=== PATIENT | female | born 1995 | race African-American/Black ===

== ENCOUNTER 2016-04-10 12:34 | Emergency (ER) | payer MEDICAID ==
[~2016-04-10] VITALS: Ht 157.5 cm; Wt 100.0 kg
[~2016-04-10 12:34] MED LIST: IBUP800T23 PO
[2016-04-10 12:35] VITALS: BP 133/89; PULSE 128; RESP 16; TEMP 98.7; O2SAT 95
[2016-04-10] MEDS ORDERED: SODIUM CHLOR 0.9% 1000 ML INJ 1,000 ML IV ONE ×2 (14:15)
[2016-04-10] MEDS ORDERED: SODIUM CHLORIDE 0.9% FLUSH 5 ML FLUSH IVF PRN (14:15)
--- NOTE | 2016-04-10 14:21 | PD ---
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 Patient states she did get a flu shot this year. Patient states it all started when she was cleaning a patient's room. Patient states was non- isolation room and does not believe the patient who occupy the room had anything contagious. She states that she has been having some "cold" production when she coughs which has been coming blood streaked. States she's also been feeling very chilled but has not taken her temperature at home. [facility], [facility] Past Medical History Medical History: Denies Significant Hx Hx Anticoagulant Therapy: No Cardiovascular Problems: No Chemotherapy: No Cerebrovascular Accident: No Diabetes: No Respiratory: No Tetanus Vaccination: < 5 Years ?: Not Past Surgical History Section: Yes Social History Alcohol Use: No Tobacco Use: No Substance Use: No Allergies-Medications (Allergen,Severity, Reaction): Coded Allergies: No Known Allergies (Unverified , 04/10/16) Reported Meds & Prescriptions Reported Meds & Active Scripts Active Ibuprofen 800 Mg Tab 800 Mg PO TID PRN Review of Systems Except as stated in HPI: all other systems reviewed are Neg Physical Exam Narrative GENERAL: WD/WN, overweight in NAD. SKIN: Warm and dry. HEAD: Atraumatic. Normocephalic. EYES: Pupils equal and round. No scleral icterus. No injection or drainage. ENT: No nasal bleeding or discharge. Mucous membranes pink and moist. TM's clear bilaterally. NECK: Trachea midline. No JVD. CARDIOVASCULAR: Tachycardic with regular rhythm. No MGR. 2+ Bilaterally equal pulses in all 5 exts. RESPIRATORY: No accessory muscle use. Clear to auscultation. Breath sounds equal bilaterally. GASTROINTESTINAL: Abdomen soft, non-tender, nondistended. Hepatic and splenic margins not palpable. MUSCULOSKELETAL: Extremities without clubbing, cyanosis, or edema. No obvious deformities. NEUROLOGICAL: Awake and alert. No obvious cranial nerve deficits. Motor grossly within normal limits. Five out of 5 muscle strength in the arms and legs. Normal speech. PSYCHIATRIC: Appropriate mood and affect; insight and judgment normal. Data Data Last Documented VS Vital Signs Date Time Temp Pulse Resp B/P Pulse Ox O2 Delivery O2 Flow Rate FiO2 04/10/16 14:22 98 Room Air 04/10/16 14:22 123 18 129/76 102/50 04/10/16 12:35 98.7 Orders Electrocardiogram (04/10/16 ) Complete Blood Count With Diff (04/10/16 14:10) Comprehensive Metabolic Panel (04/10/16 14:10) D-Dimer (04/10/16 14:10) Magnesium (Mg) (04/10/16 14:10) Prothrombin Time / Inr (Pt) (04/10/16 14:10) Act Partial Throm Time (Ptt) (04/10/16 14:10) Troponin I (04/10/16 14:10) Ecg Monitoring (04/10/16 14:10) Bilateral Bp Monitoring (04/10/16 14:10) Iv Access Insert/Monitor (04/10/16 14:10) Oximetry (04/10/16 14:10) Oxygen Administration (04/10/16 14:10) Sodium Chloride 0.9% Flush (Ns Flush) (04/10/16 14:15) Chest, Pa & Lat (04/10/16 14:10) Sodium Chlor 0.9% 1000 Ml Inj (Ns 1000 M (04/10/16 14:15) Sodium Chlor 0.9% 1000 Ml Inj (Ns 1000 M (04/10/16 14:15) Labs Laboratory Tests Test 04/10/16 14:45 White Blood Count 7.7 TH/MM3 Red Blood Count 4.98 MIL/MM3 Hemoglobin 14.0 GM/DL Hematocrit 40.6 % Mean Corpuscular Volume 81.6 FL Mean Corpuscular Hemoglobin 28.2 PG Mean Corpuscular Hemoglobin 34.5 % Concent Red Cell Distribution Width 13.8 % Platelet Count 292 TH/MM3 Mean Platelet Volume 7.8 FL Neutrophils (%) (Auto) 68.6 % Lymphocytes (%) (Auto) 15.8 % Monocytes (%) (Auto) 14.7 % Eosinophils (%) (Auto) 0.6 % Basophils (%) (Auto) 0.3 % Neutrophils # (Auto) 5.3 TH/MM3 Lymphocytes # (Auto) 1.2 TH/MM3 Monocytes # (Auto) 1.1 TH/MM3 Eosinophils # (Auto) 0.0 TH/MM3 Basophils # (Auto) 0.0 TH/MM3 CBC Comment DIFF FINAL Differential Comment Prothrombin Time 10.6 SEC Prothromb Time International 1.0 RATIO Ratio Activated Partial 31.2 SEC Thromboplast Time D-Dimer Quantitative (PE/DVT) 0.45 MG/L FEU Sodium Level 134 MEQ/L Potassium Level 4.4 MEQ/L Chloride Level 101 MEQ/L Carbon Dioxide Level 26.4 MEQ/L Anion Gap 7 MEQ/L Blood Urea Nitrogen 7 MG/DL Creatinine 0.82 MG/DL Estimat Glomerular Filtration 108 ML/MIN Rate Random Glucose 222 MG/DL Calcium Level 9.1 MG/DL Magnesium Level 1.9 MG/DL Total Bilirubin 0.2 MG/DL Aspartate Amino Transf 18 U/L (AST/SGOT) Alanine Aminotransferase 20 U/L (ALT/SGPT) Alkaline Phosphatase 79 U/L Troponin I LESS THAN 0.02 NG/ML Total Protein 8.9 GM/DL Albumin 3.9 GM/DL [facility] Medical Decision Making Medical Screen Exam Complete: Yes Emergency Medical Condition: Yes Interpretation(s) EKG shows sinus tachycardia with normal axis normal R-wave progression. Does have nonspecific right heart strain pattern. No concerning ST-T wave changes. This is a borderline EKG. No previous EKG for comparison. Differential Diagnosis URI, PNA, Dehydration, PE. Narrative Course D-Dimer below institutional cutoff. She appears well. Saturating well. Dought PE clinically. Symptoms more suggestive of influenza-like disease. CXR negative. HR improving with fluids, low 100's at time of discharge. DIscussed need for follow up with PCP and return to ED criteria. Diagnosis Primary Impression: Flu-like symptoms Departure Forms: Tests/Procedures, Work Release Enter return to work date: Apr 12, 2016 Med/Other Pt SpecificInfo: Prescription(s) given Disposition: 01 DISCHARGE HOME Condition: Stable Harjeet Fowler MD Apr 10, 2016 14:21
[2016-04-10 14:22] VITALS: BP_SYST 102; BP_SYST 129; BP_DIAS 50; BP_DIAS 76; PULSE 123; RESP 18; O2SAT 98
--- NOTE | 2016-04-10 14:42 | EKG ---
Date Performed: 04/10/2016 Time Performed: 13:16:58 PTAGE: 20 years EKG: SINUS TACHYCARDIA NONSPECIFIC T-WAVE ABNORMALITY ABNORMAL ECG NO PREVIOUS TRACING DOCTOR: William Mancuso Interpretating Date/Time 04/10/2016 14:41:54
--- NOTE | 2016-04-10 14:56 | RADRPT ---
EXAM DATE/TIME: 04/10/2016 14:39 [place] COMPARISON: No previous studies available for comparison. INDICATIONS : Hemoptysis and dizziness with fever. MEDICAL HISTORY : None. SURGICAL HISTORY : None. ENCOUNTER: Initial ACUITY: 1 week PAIN SCORE: 2/10 LOCATION: Mid chest. FINDINGS: PA and lateral views of the chest demonstrate a normal-sized cardiac silhouette. There is no effusion , consolidation, or pneumothorax. The bones and soft tissues demonstrate no acute abnormality. CONCLUSION: No acute cardiopulmonary abnormality is identified. Mark Anthony Robbins MD on April 10, 2016 at 14:54 Board Certified Radiologist. This report was verified electronically.
[2016-04-10 14:57] LABS: AUTOMATED NEUTROPHIL # 5.3 TH/MM3 (1.8-7.7); BASOPHIL % 0.3 % (0.0-2.0); EOSINOPHIL % 0.6 % (0.0-4.0); HEMATOCRIT 40.6 % (35.0-46.0); HEMO FLAGS DIFF FINAL; LYMPH % 15.8 % (9.0-44.0); LYMPHOCYTE # 1.2 TH/MM3 (1.0-4.8); MEAN CELL VOLUME 81.6 FL (80.0-100.0); MEAN CORPUSCULAR HEMOGLOBIN 28.2 PG (27.0-34.0); MEAN CORPUSCULAR HGB CONC 34.5 % (32.0-36.0); MONO % 14.7 % (0.0-8.0); NEUT % 68.6 % (16.0-70.0); PLATELET COUNT 292 TH/MM3 (150-450); RED BLOOD COUNT 4.98 MIL/MM3 (4.00-5.30); RED CELL DISTRIBUTION WIDTH 13.8 % (11.6-17.2); WHITE BLOOD COUNT 7.7 TH/MM3 (4.0-11.0)
[2016-04-10 15:13] LABS: APTT (PATIENT) 31.2 SEC (24.3-30.1); PROTHROMBIN TIME - PATIENT 10.6 SEC (9.8-11.6)
[2016-04-10 15:31] LABS: ALT (GPT) 20 U/L (9-42); ANION GAP 7 MEQ/L (5-15); AST (GOT) 18 U/L (16-38); BICARBONATE 26.4 MEQ/L (21.0-32.0); BLOOD UREA NITROGEN 7 MG/DL (7-18); CHLORIDE 101 MEQ/L (98-107); GLOMERULAR FILTRATION RATE 108 ML/MIN (>89); MAGNESIUM 1.9 MG/DL (1.5-2.5); SODIUM (NA) 134 MEQ/L (136-145)
[2016-04-10 15:32] LABS: ALKALINE PHOSPHATASE 79 U/L (45-117); TOTAL BILIRUBIN ADULT 0.2 MG/DL (0.2-1.0)
[2016-04-10 15:40] LABS: POTASSIUM 4.4 MEQ/L (3.5-5.1)
== END 2016-04-10 17:05 | disposition home or self-care (01) ==
LOC: NEPA 12:34
DX: R04.2 Hemoptysis (principal); R09.89 Other specified symptoms and signs involving the circulatory and respiratory systems; R52 Pain, unspecified; R00.0 Tachycardia, unspecified
CPT/HCPCS: 71020; 80053; 83735; 84484; 85025; 85379; 85610; 85730; 93005; 96360; 96361; 99284; J7030

== ENCOUNTER 2017-05-15 10:22 | Emergency (ER) | payer SELFPAY ==
[~2017-05-15 10:22] MED LIST changes: +IBUP1TAB7 PO; -IBUP800T23 PO
[2017-05-15 11:19] VITALS: BP 148/99; PULSE 93; RESP 14; TEMP 98.9
[2017-05-15] MEDS ORDERED: KETOROLAC TROMETHAMINE 60 MG/2 ML (IM) VIAL IM ONE (11:45)
--- NOTE | 2017-05-15 11:46 | PD ---
HPI Chief Complaint: Headache Time Seen by Provider: 11:41 Travel History International Travel<30 days: No Contact w/Intl Traveler<30days: No Traveled to known affect area: No History of Present Illness HPI 21-year-old female presents for evaluation of headache and back pain. Symptoms started yesterday evening. Pain is a sharp pain in the left side of her head and mid back which is constant,. She reports that she use [id number] Tylenol yesterday evening but the headache persists which prompted evaluation. She reports that she gets similar but less severe headaches on a monthly basis. She is currently on her menstrual period. She denies blurred vision, nausea or vomiting, photophobia, phonophobia, cough, congestion, sore throat, chest pain, abdominal pain, dysuria, flank pain. She has no other complaints at this time. [facility] Past Medical History Hx Anticoagulant Therapy: No Cardiovascular Problems: No Chemotherapy: No Cerebrovascular Accident: No Diabetes: No Diminished Hearing: No Respiratory: No ?: Not LMP: CURRENT Past Surgical History Section: Yes Social History Alcohol Use: No Tobacco Use: No Substance Use: No Allergies-Medications (Allergen,Severity, Reaction): Coded Allergies: No Known Allergies (Unverified , 04/10/16) Reported Meds & Prescriptions Reported Meds & Active Scripts Active No Active Prescriptions or Reported Medications Review of Systems Except as stated in HPI: all other systems reviewed are Neg Physical Exam Narrative GENERAL: Well-developed well-nourished female in no acute distress SKIN: Warm and dry. HEAD: Atraumatic. Normocephalic. EYES: Pupils equal and round. No scleral icterus. No injection or drainage. ENT: No nasal bleeding or discharge. Mucous membranes pink and moist. NECK: Trachea midline. No JVD. CARDIOVASCULAR: Regular rate and rhythm. No murmur appreciated. RESPIRATORY: No accessory muscle use. Clear to auscultation. Breath sounds equal bilaterally. GASTROINTESTINAL: Abdomen soft, non-tender, nondistended. Hepatic and splenic margins not palpable. MUSCULOSKELETAL: No obvious deformities. No clubbing. No cyanosis. No edema. NEUROLOGICAL: Awake and alert. No obvious cranial nerve deficits. Motor grossly within normal limits. Normal speech. PSYCHIATRIC: Appropriate mood and affect; insight and judgment normal. Data Data Last Documented VS Vital Signs Date Time Temp Pulse Resp B/P (MAP) Pulse Ox O2 Delivery O2 Flow Rate FiO2 05/15/17 11:19 98.9 93 14 148/99 (115) Orders Orders Ed Discharge Order (05/15/17 11:42) Ketorolac Inj (Toradol Inj) (05/15/17 11:45) MDM Medical Decision Making Medical Screen Exam Complete: Yes Emergency Medical Condition: Yes Medical Record Reviewed: Yes Differential Diagnosis Migraine, tension headache, pseudotumor cerebri, subarachnoid hemorrhage, intracranial mass, cluster headache Narrative Course Physical examination is reassuring. She has no neurologic deficits. She is resting comfortably on her hospital bed. I suspect she has a benign headache, possibly migraine. She will be given a dose of Toradol. Recommended follow-up with primary care physician. She is stable for discharge. Diagnosis Primary Impression: Cephalgia Departure Forms: Tests/Procedures, Work Release Enter return to work date: May 16, 2017 Additional Instructions: Follow-up with primary care physician for further evaluation of these recurrent headaches. Return for any emergent medical conditions. Med/Other Pt SpecificInfo: No Change to Meds Scripts No Active Prescriptions or Reported Meds Disposition: 01 DISCHARGE HOME Condition: Stable Jah Bear May 15, 2017 11:46
== END 2017-05-15 12:22 | disposition home or self-care (01) ==
LOC: NEPK 10:22
DX: R51 Headache (principal)
CPT/HCPCS: 96372; 99283; J1885

== ENCOUNTER 2017-05-31 09:26 | Emergency (ER) | payer SELFPAY ==
[~2017-05-31] VITALS: Ht 152.4 cm; Wt 87.0 kg
[2017-05-31 09:32] VITALS: BP 128/83; PULSE 112; RESP 18; TEMP 99.7; O2SAT 100
--- NOTE | 2017-05-31 10:22 | PD ---
HPI Chief Complaint: ENT Complaint Time Seen by Provider: 09:41 Travel History International Travel<30 days: No Contact w/Intl Traveler<30days: No Traveled to known affect area: No History of Present Illness HPI 21-year-old female presents to the emergency room for evaluation of sore throat for the past 3 days. Patient states "my tonsils came up." Patient states symptoms worsened this morning when she woke up. Pain is constant but worse with swallowing. She has had no objective fevers. She has not taken anything for symptoms. Denies cough, congestion, or runny nose. No chronic medical conditions or daily medications. PFSH Past Medical History Hx Anticoagulant Therapy: No Cardiovascular Problems: No Chemotherapy: No Cerebrovascular Accident: No Diabetes: No Diminished Hearing: No Respiratory: No Tetanus Vaccination: Unknown ?: Not Past Surgical History Section: Yes Social History Alcohol Use: No Tobacco Use: No Substance Use: No Allergies-Medications (Allergen,Severity, Reaction): Coded Allergies: No Known Allergies (Unverified Adverse Reaction, Unknown, 05/31/17) Reported Meds & Prescriptions Reported Meds & Active Scripts Active Amoxicillin 500 Mg Cap 500 Mg PO BID 10 Days Review of Systems Except as stated in HPI: all other systems reviewed are Neg Physical Exam Narrative GENERAL: Well-nourished, well-developed female no acute distress. Afebrile. Ambulatory. SKIN: Focused skin assessment warm/dry. HEAD: Normocephalic. EYES: No scleral icterus. No injection or drainage. ENT: Mucosa pink and moist. Significant beefy red erythema bilaterally without exudates. Tonsils 2+ and equal. No uvular edema. No uvular, palatal, or tonsillar deviation. Airway patent. NECK: Supple, trachea midline. No JVD or lymphadenopathy. CARDIOVASCULAR: Slightly tachycardic. Regular rhythm without murmurs, gallops, or rubs. RESPIRATORY: Breath sounds equal bilaterally. No accessory muscle use. No crackles, rales, wheezes, or rhonchi. Data Data Last Documented VS Vital Signs Date Time Temp Pulse Resp B/P (MAP) Pulse Ox O2 Delivery O2 Flow Rate FiO2 05/31/17 09:32 99.7 112 18 128/83 (98) 100 Orders Orders Influenzae A/B Antigen (05/31/17 09:42) Group A Rapid Strep Screen (05/31/17 09:54) Ketorolac Inj (Toradol Inj) (05/31/17 10:30) Strep Culture (Group A) (05/31/17 10:00) Ed Discharge Order (05/31/17 10:33) [facility] Medical Decision Making Medical Screen Exam Complete: Yes Emergency Medical Condition: Yes Medical Record Reviewed: Yes Differential Diagnosis Streptococcal pharyngitis, viral URI, flu Narrative Course 21-year-old female presents to the emergency room for evaluation of sore throat for the past 3 days. She is slightly febrile and tachycardic in the emergency room. Physical exam reveals significantly, beefy red pharynx and tonsils without exudates. No peritonsillar abscess. Patient is handling her secretions without difficulty. She was given Toradol in the ED for pain, swelling, and fever. Rapid influenza and strep are negative. I suspect false negative and will treat patient with antibiotics anyway. Patient told to return for worsening symptoms. She understands and agrees to plan. Diagnosis Primary Impression: Pharyngitis Qualified Codes: J02.8 - Acute pharyngitis due to other specified organisms Referrals: Primary Care Physician Additional Instructions: Rest and drink plenty of fluids. Take amoxicillin as directed, until gone. Take ibuprofen with food as directed, as needed for pain. Follow-up with a primary care physician. Return to the emergency room for worsening symptoms. Med/Other Pt SpecificInfo: Prescription(s) given Scripts Amoxicillin (Amoxicillin) 500 Mg Cap 500 MG PO BID for Infection for 10 Days, #20 CAP 0 Refills Prov: Kai Valentino MD 05/31/17 Disposition: 01 DISCHARGE HOME Condition: Stable Eli Oconnell May 31, 2017 10:22
[2017-05-31] MEDS ORDERED: AMOX500C PO (10:26)
[2017-05-31] MEDS ORDERED: KETOROLAC TROMETHAMINE 60 MG/2 ML (IM) VIAL IM ONE (10:30)
== END 2017-05-31 10:46 | disposition home or self-care (01) ==
LOC: NEPK 09:26
DX: J02.8 Acute pharyngitis due to other specified organisms (principal); B95.4 Other streptococcus as the cause of diseases classified elsewhere
CPT/HCPCS: 87081; 87804; 87880; 96372; 99283; J1885

== ENCOUNTER 2017-06-15 20:06 | Emergency (ER) | payer SELFPAY ==
[~2017-06-15] VITALS: Ht 152.4 cm; Wt 88.2 kg
[~2017-06-15 20:06] MED LIST changes: +AMOX500C PO; -IBUP1TAB7 PO
[2017-06-15 20:37] VITALS: BP 184/108; PULSE 116; RESP 16; TEMP 98.6; O2SAT 97
[2017-06-15] MEDS ORDERED: NAPROXEN 500 MG TAB PO ONE (21:30)
--- NOTE | 2017-06-15 21:59 | PD ---
HPI Chief Complaint: Oral / Dental Pain or Problem Time Seen by Provider: 21:24 Travel History International Travel<30 days: No Contact w/Intl Traveler<30days: No Traveled to known affect area: No History of Present Illness HPI 21-year-old woman presents emerged from complaining of jaw dislocation is spontaneously reduced in the waiting room. States this happened her one time before. Today she states she was yawning, and her jaw got stuck open. It was like that for short period of time and then reduced spontaneously in the waiting room. She is a limited jaw pain bilaterally now. She denies any history of TMJ problems. No popping or clicking or soreness. No other complaints History Past Medical History Medical History: Denies Significant Hx Tetanus Vaccination: < 5 Years Influenza Vaccination: Yes LMP: 06/10/17 : 1 Para: 1 Social History Alcohol Use: No Tobacco Use: No Allergies-Medications (Allergen,Severity, Reaction): Coded Allergies: No Known Allergies (Unverified Allergy, Unknown, 06/15/17) Reported Meds & Prescriptions Reported Meds & Active Scripts Active Amoxicillin 500 Mg Cap 500 Mg PO BID 10 Days Review of Systems Except as stated in HPI: all other systems reviewed are Neg Physical Exam Narrative GENERAL: Well-appearing 21-year-old woman, no acute distress. HEENT: Normal appearance of the face. There is no asymmetry or jaw dislocation at this time. There is no popping or clicking in the TMJ. There is some tenderness there. SKIN: Warm and dry. CARDIOVASCULAR: Warm and well perfused. RESPIRATORY: Normal rate and effort. MUSCULOSKELETAL: [default value] NEUROLOGICAL: Awake and alert. No gross deficits. Data Data Last Documented VS Vital Signs Date Time Temp Pulse Resp B/P (MAP) Pulse Ox O2 Delivery O2 Flow Rate FiO2 06/15/17 20:37 98.6 116 16 184/108 (133) 97 Orders Orders Naproxen (Naprosyn) (06/15/17 21:30) Apply Cervical Collar (06/15/17 21:28) Ed Discharge Order (06/15/17 21:59) MDM Medical Decision Making Medical Screen Exam Complete: Yes Emergency Medical Condition: Yes Differential Diagnosis Jaw dislocation, TMJ dysfunction, other Narrative Course Medical decision making Is a 21-year-old woman, presents with jaw dislocation, now spontaneously reduced. Offered a c-collar to help with reducing the chance of re- dislocation. Recommend NSAIDs for pain. Outpatient follow-up with ENT. Diagnosis Primary Impression: Jaw dislocation Referrals: Ronal Valentine MD call for appointment Additional Instructions: Wear cervical collar for 2 days. Use ibuprofen if needed for pain. Follow-up with Dr. Valentine. Return to the emergency department for any new or worsening symptoms. Med/Other Pt SpecificInfo: No Change to Meds Disposition: 01 DISCHARGE HOME Condition: Stable Kai Valentino MD Jun 15, 2017 21:59
== END 2017-06-15 22:06 | disposition home or self-care (01) ==
LOC: NEPE 20:06
DX: M26.69 Other specified disorders of temporomandibular joint (principal)
CPT/HCPCS: 99282; L0150